=== PATIENT | female | born 1945 | race Caucasian/White ===

== ENCOUNTER 2022-06-12 09:56 | Emergency (ER) | payer MEDICARE, SELFPAY ==
[2022-06-12 10:12] VITALS: BP 135/69; PULSE 109; RESP 20; TEMP 37.2; O2SAT 97
--- NOTE | 2022-06-12 11:07 | ED.URI ---
HPI - URI/Sore Throat General Chief Complaint: Upper Respiratory Infection Stated Complaint: sore throat / ears Time Seen by Provider: 06/12/22 11:05 Source: patient Mode of arrival: ambulatory Limitations: no limitations History of Present Illness HPI Narrative: 76 year old female who presents to [facility] care with complaints of cough and sore throat since with some sinus drainage and ear popping. Patient reports that she has taken Tylenol cold OTC medication and cough drops for her symptoms. Patient denies any shortness of breath, body aches or known fevers. Patient denies any known ill contacts. MD elicited complaint: cough, sore throat, rhinorrhea, nasal congestion, sinus pain and other (ears popping) Onset (ago): day(s) (9-10 days) Consistency: constant Pain scale (0-10): 10 Able to tolerate fluids by mouth: Yes Exacerbating factors: swallowing Treatments prior to arrival: other (Tylenol cold medication OTC and cough drops) Related Data Home Medications Medication Instructions Recorded Confirmed B-complex with vitamin C 1 tablet PO DAILY 07/13/21 06/12/22 cholecalciferol (vitamin D3) 25 25 mcg PO DAILY 07/13/21 06/12/22 mcg (1,000 unit) capsule (Vitamin D3) Allergies Allergy/AdvReac Type Severity Reaction Status Date / Time NSAIDS (Non-Steroidal Allergy Unknown Unknown Verified 06/12/22 10:16 Anti-Inflamma Sulfa (Sulfonamide Allergy Unknown Unknown Verified 06/12/22 10:16 Antibiotics) Review of Systems Review of Systems: CONSTITUTIONAL: Denies malaise, chills, sweats, or fever. EYES: Denies visual changes, redness, or discharge. ENT: Reports rhinorrhea, congestion, sinus pain, bilateral otalgia and sore throat. CARDIOVASCULAR: Denies chest pain, palpitations, or edema. RESPIRATORY: Reports cough.? Denies dyspnea. GASTROINTESTINAL: Denies abdominal pain, nausea, vomiting, diarrhea SKIN: Denies rash or itching. MUSCULOSKELETAL: Denies myalgia. NEUROLOGIC: Denies acute headache.gait is unsteady All systems reviewed & are unremarkable except as noted in HPI and below PMFSH Past Medical History Medical History (Updated 06/14/22 @ 08:50 by Elvia Bonilla NP) Balance disorder Colon polyp Depression History of vaginal delivery HLD (hyperlipidemia) Hypertension Surgical History Surgical History (Updated 06/14/22 @ 08:47 by Elvia Bonilla NP) History of colon resection (1989) History of facial surgery 2020 and has had some facial work in past History of tonsillectomy Family History Family History Father Malignant neoplasm of prostate Mother Family history of malignant neoplasm of breast in first degree relative Carcinoma of colon Social History Social History (Updated 01/15/22 @ 11:35 by Fiona Walls CMA) Smoking packs per day: 1 Smoking cigarettes per day: 20.0 Years smoked: 18 Smoking pack-years: 18.00 Smoking status: Never smoker Tobacco type: cigarettes Second hand tobacco smoke exposure: No Alcohol intake: never Substance use: never Substance use type: does not use Lack of Transportation: No Lack of Food: Never True Current Housing: I Have Housing Concerned About Future Housing: No Difficulty Paying Gas/Electric Bills: No Difficulty Paying for Meds: No Currently Unemployed: No Education: High School Diploma/GED Difficulty w/ Childcare or Family Care: No Living arrangements: with family Occupation/Education: retired Gender identity (if verbalized by the patient): Female Sexual Orientation (if Verbalized by the Patient): Straight or Heterosexual Spiritual care concerns: No Agree to blood products: Yes Comments At time of signature, agree with nursing past medical, surgical, social and family history. There is no relevant family history pertinent to the presenting complaint Exam Narrative: GENERAL: Well-appearing, well-nourished
== END 2022-06-12 11:30 | disposition home or self-care (01) ==
PROVIDERS: Emergency Provider Registered Nurse; PCP Family Medicine
DX: J32.9 Chronic sinusitis, unspecified (principal); H60.311 Diffuse otitis externa, right ear; E78.5 Hyperlipidemia, unspecified; I10 Essential (primary) hypertension
CPT/HCPCS: 87081; 87880; 99213; G0463

== ENCOUNTER 2023-11-12 14:39 | Outpatient (CLI) | payer MEDICARE, SELFPAY ==
--- NOTE | ~2023-11-12 | XR_ITS ---
EXAMINATION: XR clavicle RT DATE: 11/12/2023 15:06 INDICATION: Right shoulder injury. TECHNIQUE: 2 views of right clavicle were obtained. COMPARISON: None. FINDINGS: Bone alignment is normal. There is a fracture of base of coracoid process. The distal fract ure fragment demonstrates approximately 6 mm distraction and lateral displacement. Coracoclavicular i nterval is normal. 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 IMPRESSION: 1. Fracture of base of coracoid process of right scapula. Reviewed, dictated and finalized at location A.
--- NOTE | ~2023-11-12 | XR_ITS ---
EXAMINATION: XR shoulder RT min 2V DATE: 11/12/2023 15:06 INDICATION: Right shoulder pain. TECHNIQUE: 4 views of right shoulder were obtained. COMPARISON: None. FINDINGS: Bone alignment is normal. There is a fracture of base of coracoid process. The anterior fra cture fragment demonstrates approximately 6 mm distraction and lateral displacement. 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 IMPRESSION: 1. Fracture of base of coracoid process. Reviewed, dictated and finalized at location A.
--- NOTE | ~2023-11-12 | XR_ITS ---
EXAMINATION: XR elbow RT min 3V DATE: 11/12/2023 15:17 INDICATION: Right elbow pain TECHNIQUE: Anteroposterior, two oblique and lateral views of the right elbow were obtained. COMPARISON: None. FINDINGS: Alignment is normal. No fracture or joint effusion. Mild osteoarthritis at all 3 compartments of the right elbow joint. Soft tissues are unremarkable. IMPRESSION: 1. Mild osteoarthritis at the right elbow. No acute osseous abnormality or joint effusion. Reviewed, dictated and finalized at location B. IMPRESSION: 1. Mild osteoarthritis at the right elbow. No acute osseous abnormality or join t effusion.
== END 2023-11-12 14:40 | disposition home or self-care (01) ==
PROVIDERS: PCP Family Medicine; Visit Provider Family Medicine
DX: S42.131A Displaced fracture of coracoid process, right shoulder, initial encounter for closed fracture (principal); X58.XXXA Exposure to other specified factors, initial encounter; M19.021 Primary osteoarthritis, right elbow; M25.511 Pain in right shoulder; M25.529 Pain in unspecified elbow
CPT/HCPCS: 73000; 73030; 73080